=== PATIENT | male | born 1985 | race Caucasian/White ===

== ENCOUNTER 2018-08-09 11:11 | Emergency (ER) | payer MEDICAID ==
[2018-08-09 11:26] VITALS: BP 135/96
[2018-08-09] MEDS ORDERED: PROPARACAINE 0.5% OPHTH DROPS 15 ML EACHEYE STA (12:08)
--- NOTE | 2018-08-09 12:32 | ED Physician Documentation ---
PD HPI OPHTHO - Stated complaint Stated Complaint: R EYE IRRITATION - Chief complaint Chief Complaint: Heent - History obtained from History obtained from: Patient - History of Present Illness Timing - onset: How many days ago (2) Timing - duration: Days (2) Timing - details: Gradual onset Pain level max: 5 Pain level now: 4 Location: Right Quality / character: Aching Associated symptoms: Redness, Tearing Contributing factors: Wears contacts (sleeps in his contacts). No: Exposed to conjunctivitis, Recent URI, FB, UV light (welding etc), Chemical exposure, acid, Chemical exposure, base, Blunt trauma, Penetrating trauma Similar symptoms before: Has not had sx before Recently seen: Not recently seen Review of Systems Constitutional: denies: Fever, Chills Eyes: reports: Photophobia (Mild) Nose: denies: Rhinorrhea / runny nose, Congestion GI: denies: Vomiting Skin: denies: Rash Musculoskeletal: denies: Neck pain, Back pain Neurologic: denies: Headache PD PAST MEDICAL HISTORY - Past Medical History Past Medical History: No - Past Surgical History Past Surgical History: No - Present Medications Home Medications: Ambulatory Orders Medication Instructions Recorded Confirmed Buprenorphine HCl/Naloxone HCl 6 mg PO DAILY 08/09/18 08/09/18 [Suboxone 8 mg-2 mg Sl Film] Ofloxacin 0.3% Ophth Drops 1 drops RIGHTEYE Q4H #1 btl 08/09/18 [Ocuflox] - Allergies Allergies/Adverse Reactions: Allergies Allergy/AdvReac Type Severity Reaction Status Date / Time No Known Drug Allergies Allergy Verified 08/09/18 11:25 - Living Situation Living Arrangement: reports: At home - Social History Does the pt have substance abuse?: No PD ED PE NORMAL - Vitals Vital signs reviewed: Yes - General General: Alert and oriented X 3, No acute distress - HEENT HEENT: Moist mucous membranes, Other (Right eye - Mild conjunctival injection. Shallow corneal ulcer present in the superior lateral aspect. Mild fluorescein uptake.) - Neck Neck: Supple, no meningeal sign - Cardiac Cardiac: RRR - Respiratory Respiratory: No respiratory distress, Clear bilaterally - Derm Derm: Warm and dry - Neuro Neuro: Alert and oriented X 3 - Psych Psych: Normal mood, Normal affect Results - Vitals Vitals: Vital Signs - 24 hr 08/09/18 11:22 Temperature 36.3 C L Heart Rate 86 Respiratory 16 Rate Blood Pressure 135/96 H O2 Saturation 99 Oxygen O2 Source Room air PD MEDICAL DECISION MAKING - ED course Complexity details: considered differential, d/w patient ED course: Patient is a 32-year-old male who presents to the emergency department what appears to be a right-sided corneal ulcer, shallow and small secondary to sleeping in his contact lenses. Will place on Ocuflox and follow-up closely with ophthalmology. Counseled not to sleep in his contacts. Patient counseled regarding signs and symptoms for which I believe and urgent re-evaluation would be necessary. Patient with good understanding of and agreement to plan and is comfortable going home at this time This document was made in part using voice recognition software. While efforts are made to proofread this document, sound alike and grammatical errors may occur. Departure - Departure Disposition: 01 Home, Self Care Clinical Impression: Corneal ulcer of right eye Condition: Good Instructions: ED Ulcer Cornea Follow-Up: VISH MARIA DO [Primary Care Provider] - Caden Kimbrough MD [Provider Admit Priv/Credential] - Within 3 Days (for recheck of your eye) Prescriptions: Ofloxacin 0.3% Ophth Drops [Ocuflox] 1 drops RIGHTEYE Q4H #1 btl Comments: Use the antibiotic eyedrops as prescribed. It is very important you follow-up with ophthalmology to ensure this is healing well. You appear to have a corneal ulcer from your contact lens. Do not wear contact lenses until released by ophthalmology. Do not sleep in your contact lenses. Return if you worsen Discharge Date/Time: 08/09/18 12:38
== END 2018-08-09 12:38 | disposition home or self-care (01) ==
LOC: ED 11:11
DX: H16.001 Unspecified corneal ulcer, right eye (principal)
CPT/HCPCS: 99283; J3490